=== PATIENT | female | born 1960 | race Caucasian/White ===

== ENCOUNTER 2020-04-19 16:47 | Emergency (ER) | payer OTHER ==
[~2020-04-19] VITALS: Ht 162.6 cm; Wt 86.2 kg
[2020-04-19] MEDS ORDERED: LIPITOR 20 MG T20 M1 PO (16:57)
[2020-04-19] MEDS ORDERED: OMEPRAZOLE 20 M20 M1 PO ×2 (16:57→16:58)
[2020-04-19] MEDS ORDERED: AMITRIPTYLINE H10 M3 PO (16:57)
[2020-04-19] MEDS ORDERED: IBUPROFEN 800800 M1 PO (17:26)
[2020-04-19] MEDS ORDERED: KEFLEX500 M1 PO (17:26)
[2020-04-19 18:00] VITALS: BP 130/75
== END 2020-04-19 18:01 | disposition home or self-care (01) ==
LOC: M.ERS 16:47
DX: S01.01XA Laceration without foreign body of scalp, initial encounter (principal); Z98.890 Other specified postprocedural states; W22.8XXA Striking against or struck by other objects, initial encounter; Y93.89 Activity, other specified; Y92.89 Other specified places as the place of occurrence of the external cause; Y99.8 Other external cause status